=== PATIENT | male | born 1970 | race Caucasian/White ===

== ENCOUNTER 2021-03-02 20:56 | Emergency (ER) | payer SELFPAY ==
[~2021-03-02] VITALS: Ht 170.2 cm; Wt 100.0 kg
[2021-03-02] MEDS ORDERED: IBUP-2029 MT (22:30)
[2021-03-02 22:35] VITALS: BP 145/82
== END 2021-03-02 22:39 | disposition home or self-care (01) ==
LOC: ER 20:56
DX: S42.302A Unspecified fracture of shaft of humerus, left arm, initial encounter for closed fracture (principal); S42.301A Unspecified fracture of shaft of humerus, right arm, initial encounter for closed fracture; Z88.5 Allergy status to narcotic agent; I10 Essential (primary) hypertension; Y93.83 Activity, rough housing and horseplay; Y93.89 Activity, other specified; Y92.89 Other specified places as the place of occurrence of the external cause; Y99.8 Other external cause status
CPT/HCPCS: 29130; 73030; 73060; 73130; 99284; A4565